=== PATIENT | male | born 1950 | race Caucasian/White ===

== ENCOUNTER 2021-07-22 17:01 | Outpatient (CLI) | payer OTHER, SELFPAY ==
--- NOTE | 2021-07-22 | XR_ITS ---
WS: [id number] Chest PA view, 07/22/2021 Clinical Data: PRE EMPLOYMENT SCREENING Comparison: None. Findings: No nodules, masses or effusions are seen. The heart is normal. The pulmonary vascularity is not increased. No pneumonia or pneumothorax is seen. No evidence of tuberculosis is seen. There is a slight dextroscoliosis. XR/XR chest 1V [id number] Impression: Negative chest.
== END 2021-07-22 17:02 | disposition home or self-care (01) ==
LOC: RAD 17:14
PROVIDERS: Visit Provider Family Medicine
DX: Z02.1 Encounter for pre-employment examination (principal)
CPT/HCPCS: 71045

== ENCOUNTER → 2023-01-31 15:27 | Outpatient (BNVA) | payer MEDICARE, OTHER, SELFPAY | PROVIDERS: Visit Provider Nurse Practitioner Family | DX: Z85.828 Personal history of other malignant neoplasm of skin (principal); L81.9 Disorder of pigmentation, unspecified; D22.5 Melanocytic nevi of trunk; Z71.89 Other specified counseling; L85.3 Xerosis cutis; L57.8 Other skin changes due to chronic exposure to nonionizing radiation; L57.0 Actinic keratosis | CPT/HCPCS: 17000; 17003; 99213 ==

== ENCOUNTER → 2023-08-08 12:58 | Outpatient (BNVA) | payer MEDICARE, OTHER, SELFPAY | PROVIDERS: Visit Provider Dermatology | DX: L57.0 Actinic keratosis (principal); L57.8 Other skin changes due to chronic exposure to nonionizing radiation; Z08 Encounter for follow-up examination after completed treatment for malignant neoplasm; Z85.828 Personal history of other malignant neoplasm of skin; L81.4 Other melanin hyperpigmentation; Z71.89 Other specified counseling; D18.01 Hemangioma of skin and subcutaneous tissue | CPT/HCPCS: 17000; 99213 ==

== ENCOUNTER → 2024-09-11 14:51 | Outpatient (BNVA) | payer MEDICARE, OTHER, SELFPAY | PROVIDERS: Visit Provider Nurse Practitioner Family | DX: L81.4 Other melanin hyperpigmentation (principal); L57.8 Other skin changes due to chronic exposure to nonionizing radiation; X32.XXXA Exposure to sunlight, initial encounter; L57.0 Actinic keratosis; D18.01 Hemangioma of skin and subcutaneous tissue; Z08 Encounter for follow-up examination after completed treatment for malignant neoplasm; Z85.828 Personal history of other malignant neoplasm of skin | CPT/HCPCS: 17000; 99213 ==

== ENCOUNTER → 2025-09-10 07:53 | Outpatient (BNVA) | payer MEDICARE, OTHER, SELFPAY | PROVIDERS: Visit Provider Nurse Practitioner Family | DX: L57.0 Actinic keratosis (principal); I87.2 Venous insufficiency (chronic) (peripheral); Z85.828 Personal history of other malignant neoplasm of skin; D18.01 Hemangioma of skin and subcutaneous tissue; L81.4 Other melanin hyperpigmentation; L57.8 Other skin changes due to chronic exposure to nonionizing radiation | CPT/HCPCS: 17000; 99213 ==